=== PATIENT | female | born 1960 | race Caucasian/White ===

== ENCOUNTER 2019-06-30 13:35 | Emergency (ER) | payer OTHER ==
--- NOTE | 2019-06-30 14:06 | NUR ---
PT AMBULATORY TO ROOM 17 W/ C/O PAINFUL URINATION, BURNING, INCREASED FREQUENCY. DENIES PELVIC PAIN. PT ALSO C/O HTN. TAKES [place] 50 MG DAILY. TOOK IT TODAY. BP REMAINS HIGH. BP IN TRIAGE HIGH. BP IN ROOM 161/106. WARM BLANKET PROVIDED. MONITORS APPLIED. ERP DR. BUTLER AT BEDSIDE.
--- NOTE | 2019-06-30 14:24 | NUR ---
PT RESTING ON NANCY. ALEXANDRA. VSS. FRIEND NOW AT BEDSIDE.
[2019-06-30 14:25] LABS: MICROSCOPIC AUTO
[2019-06-30 14:26] LABS: CULTURE INDICATED? YES
[2019-06-30 14:43] VITALS: BP 154/88
== END 2019-06-30 15:46 | disposition home or self-care (01) ==
LOC: ED 15:07
DX: N30.00 Acute cystitis without hematuria (principal); F17.200 Nicotine dependence, unspecified, uncomplicated; I10 Essential (primary) hypertension
CPT/HCPCS: 81001; 87077; 87086; 87186; 99283

== ENCOUNTER 2021-01-30 15:23 | Emergency (ER) | payer MEDICAID, OTHER ==
[~2021-01-30] VITALS: Ht 160 cm; Wt 91.5 kg
[2021-01-30 15:40] VITALS: BP 175/97
== END 2021-01-30 17:42 | disposition home or self-care (01) ==
LOC: ED 17:20
DX: M25.561 Pain in right knee (principal); I10 Essential (primary) hypertension
CPT/HCPCS: 99283

== ENCOUNTER 2021-05-14 14:42 | Outpatient (CLI) | payer MEDICAID | END 2021-05-14 23:59 | disposition home or self-care (01) | LOC: CFH 14:42 | PROVIDERS: ATTEND Nurse Practitioner Family | DX: Z12.31 Encounter for screening mammogram for malignant neoplasm of breast (principal) | CPT/HCPCS: 77067 ==

== ENCOUNTER → 2021-05-28 | Outpatient (CLI) | payer MEDICAID | END | disposition home or self-care (01) | LOC: RAD 16:34 | PROVIDERS: ATTEND Nurse Practitioner Family | DX: R15.9 Full incontinence of feces (principal) | CPT/HCPCS: 74021 ==